=== PATIENT | female | born 1960 | race Caucasian/White ===

== ENCOUNTER 2016-09-01 15:31 | Emergency (ER) | payer OTHER ==
[2016-09-01 15:40] VITALS: RESP 17
--- NOTE | 2016-09-01 16:22 | EDPHY ---
H & P Time Seen by Provider: 09/01/16 15:45 HPI/ROS: Chief complaint. Left thigh pain HPI. 55-year-old female nontraumatic left thigh pain for 1 week. No injury or unusual activity. It hurts to walk. He is in the posterior and lateral left thigh. No similar symptoms previously. No symptoms below the knee. No low back pain. No swelling but she has chronic lymphedema so she has a difficult time knowing if it is more swollen or not. No redness or fever. No recent travel or immobilization. Patient is concerned about blood clot. No chest discomfort or trouble breathing ROS Constitutional. no fever/chills, no weakness Eyes. no problems with vision ENT. no sore throat, no nasal drainage Cardiovascular. no chest pain Respiratory. no shortness of breath, no cough Abdominal. no abdominal pain, no nausea/vomiting, no diarrhea . no problems urinating MS. Left thigh pain Skin. no rash Lymph. no swollen glands Neuro. no headache, no dizziness, no difficulty walking or with speech Past Medical/Surgical History: Hypertension, glaucoma, insomnia, GERD, lymphedema, pre diabetes Social History: Single, nonsmoker, no alcohol Smoking Status: Never smoked Physical Exam: General Appearance: Alert pleasant well-developed female mild distress vital signs are stable Eyes: Pupils equal and round no pallor or injection. ENT, Mouth: Mucous membranes are moist. Respiratory: There are no retractions, lungs are clear to auscultation. Cardiovascular: Regular rate and rhythm. Gastrointestinal: Abdomen is soft and nontender, no masses, bowel sounds normal. Neurological: Awake and alert, sensory and motor exams grossly normal. Skin: Warm and dry, no rashes. Musculoskeletal: Neck is supple nontender. No tenderness to the low back Extremities symmetrical, full range of motion. Tenderness posterior and lateral left thigh. No obvious swelling. Chronic lymphedema is present. No erythema redness. No surface trauma Psychiatric: Patient is oriented X 3, there is no agitation. Constitutional: Initial Vital Signs Temperature (C) 36.7 C 09/01/16 15:37 Heart Rate 103 H 09/01/16 15:37 Respiratory Rate 17 09/01/16 15:37 Blood Pressure 202/97 H 09/01/16 15:37 O2 Sat (%) 94 09/01/16 15:37 O2 Delivery Mode Room Air Allergies/Adverse Reactions: walnut Allergy (Verified 09/01/16 15:36) Home Medications: Medication Instructions Recorded Ambien 5MG (RX) 08/18/13 Lisinopril 09/01/16 Ondansetron Odt [Zofran Odt] 4 mg PO Q4PRN PRN #4 tab 09/01/16 oxyCODONE/APAP 5/325 [Percocet 1 tab PO Q4-6PRN PRN #10 tab 09/01/16 5/325] traMADol 09/01/16 Medical Decision Making - Diagnostics Imaging Results: Imaging Impressions Extremity Venous Study 09/01/16 16:22 Impression: No deep venous thrombosis left leg. Results called and discussed with Dr. Juanpablo Martin at 09/01/2016 17:14. Ultrasound reveals no evidence of DVT ED Course/Re-evaluation: Re-evaluation by me at 5:50 p.m.. Patient is stable. She and I discussed imaging study results, treatment plan including criteria for return importance of follow-up and further evaluation. She expresses understanding and agreement Differential Diagnosis: I considered muscular etiology, sciatica, DVT. Patient has no low back pain and has had sciatic on the right and this does not feel similar. No evidence for DVT. I suspect that this is muscular. Departure - Departure Disposition: Home, Routine, Self-Care Clinical Impression: Thigh pain, musculoskeletal Qualifiers: Laterality: left Qualified Code(s): M79.605 - Pain in left leg Condition: Good Instructions: Hip Sprain (ED) Additional Instructions: Ibuprofen 600 mg every 6 hours for discomfort. Percocet also for pain beginning with 1/2 pill every 4-6 hours. Zofran if needed for nausea. Return for worsening symptoms. Recheck with Dr. Lorenz on Saturday. Referrals: Jody Lorenz MD [Primary Care Provider] - 2-3 days without fail Prescriptions: Ondansetron Odt [Zofran Odt] 4 mg PO Q4PRN PRN #4 tab PRN Reason: Nausea/Vomiting, Use 1st oxyCODONE/APAP 5/325 [Percocet 5/325] 1 tab PO Q4-6PRN PRN #10 tab PRN Reason: Pain, Moderate
[2016-09-01 18:18] VITALS: BP 144/79; PULSE 84; TEMP 98.6; O2SAT 95
== END 2016-09-01 18:17 | disposition home or self-care (01) ==
DX: M79.652 Pain in left thigh (principal); I10 Essential (primary) hypertension

== ENCOUNTER 2016-09-21 10:54 | Emergency (ER) | payer OTHER ==
[2016-09-21 11:09] VITALS: RESP 18
[2016-09-21] MEDS ORDERED: OXYCODONE/APAP 5/325 TAB PO ONE (13:01)
--- NOTE | 2016-09-21 13:21 | EDPHY ---
H & P Stated Complaint: Still has L leg pain;now moving up into hip - Personal History LMP (Females 10-55): Post Menopausal Current Tetanus Diphtheria and Acellular Pertussis (TDAP): Yes - Medical/Surgical History Hx Asthma: No Hx Chronic Respiratory Disease: No Hx Diabetes: No Hx Cardiac Disease: No Hx Renal Disease: No Hx Cirrhosis: No Hx Alcoholism: No Hx HIV/AIDS: No Hx Splenectomy or Spleen Trauma: No Other PMH: glaucoma, GERD, insomnia, lymphadema, htn - Social History Smoking Status: Never smoked Time Seen by Provider: 09/21/16 12:59 HPI/ROS: CHIEF COMPLAINT: Left hip and inguinal pain HISTORY OF PRESENT ILLNESS: 55-year-old morbidly obese female complaining of 2 + weeks of left hip and inguinal pain. She was seen in the ER approximately 2 weeks ago for same complaint had a negative ultrasound. She states that at that time she describes the pain to feel more in her muscles she now describes, for the past few days, the pain feeling worse and more reproducible in her left inguinal region. History of trauma to the area 2 months ago but has been weight -bearing ever since. She has had difficulty weight-bearing recently. She also describes left buttock pain. Denies low back pain. Denies incontinence. Denies retention. Denies saddle anesthesia. Denies foot drop. Denies fever chills. PRIMARY CARE PROVIDER: Dr. Jody Lorenz REVIEW OF SYSTEMS: A ten point review of systems was performed and is negative with the exception of the items mentioned in the HPI PAST MEDICAL & SURGICAL HISTORY: Morbidly obese SOCIAL HISTORY: nonsmoker PHYSICAL EXAM (Prior to examination, patient consented to physical exam, hands were washed and my usual and customary physical exam procedures followed) 1) GENERAL: morbidly obese alert and oriented. Appears uncomfortable. 2) HEAD: Normocephalic, atraumatic 3) HEENT: Pupils equal, round, reactive to light bilaterally. Sclera anicteric. 4) NECK: Full range of motion, no meningeal signs. 5) LUNGS: Clear auscultation bilaterally 6) HEART: Regular rate and rhythm, no murmur, no heave, no gallop. 7) ABDOMEN: No guarding, no rebound, no focal tenderness, 8) MUSCULOSKELETAL: tender to palpation left inguinal region with no palpable or pulsatile mass. No peripheral edema or discoloration. 9) BACK: No CVA tenderness, no midline vertebral tenderness, no fluctuance, no step-off, no obvious trauma, no visual or palpable abnormality. 10) SKIN: No rash, no petechiae. 11) neuro: Bilateral lower extremities strength 5/5, Achilles and patellar reflexes intact equal bilaterally . No foot drop. DIFFERENTIAL DIAGNOSIS: In no particular order, including but not limited to, fracture, sprain/strain, cauda equina, piriformis syndrome (Deepak,Sultana Crystal) Constitutional: Initial Vital Signs Temperature (C) 37.2 C 09/21/16 11:00 Heart Rate 102 H 09/21/16 11:00 Respiratory Rate 18 09/21/16 11:00 Blood Pressure 170/96 H 09/21/16 11:00 O2 Sat (%) 97 09/21/16 11:00 O2 Delivery Mode Room Air Allergies/Adverse Reactions: walnut Allergy (Unknown, Verified 09/21/16 11:04) Home Medications: Medication Instructions Recorded Ambien 5MG (RX) 08/18/13 Lisinopril 09/01/16 oxyCODONE/APAP 5/325 [Percocet 1 tab PO Q4-6PRN PRN #10 tab 09/01/16 5/325] traMADol 09/01/16 Cyclobenzaprine [Flexeril 10 MG 10 mg PO TID #10 tab 09/21/16 (RX)] Pantoprazole Sodium [Protonix 40mg 40 mg PO 09/21/16 (*)] oxyCODONE/APAP 5/325 [Percocet 1 tab PO Q6 #10 tab 09/21/16 5/325] Medical Decision Making - Diagnostics Imaging: Discussed imaging studies w/ call center director Radiologist ED Course/Re-evaluation: Patient was not seen by me while she was in the emergency department. However her care was discussed with the PA while the patient was in the department. I agree with treatment plan and management (Juanpablo Martin) This patient has been re-evaluated with serial examinations. I think this septic arthritis is less than likely. Doubt cauda equina. Discussed possibility of piriformis syndrome. Doubt fracture or dislocation. I think the patient would benefit from non emergent follow up with Orthopedics as she may necessitate MRI. Plan will be discharge with analgesia, Flexeril. Usual and customary discharge precautions instructions provided. (Sultana Sotelo) - Data Points Medications Given: Discontinued Medications Oxycodone/Acetaminophen (Percocet 5/325) 1 tab PO EDNOW ONE Stop: 09/21/16 13:02 Last Admin: 09/21/16 13:14 Dose: 1 tab Departure - Departure Disposition: Home, Routine, Self-Care Clinical Impression: Left hip pain, Left buttock pain Condition: Good Instructions: Hip Pain (ED) Additional Instructions: Return to new or worsening symptoms, if you are unable to bear weight or any other symptoms that concern you. Referrals: Jody Lorenz MD [Primary Care Provider] - As per Instructions Prescriptions: Cyclobenzaprine [Flexeril 10 MG (RX)] 10 mg PO TID #10 tab oxyCODONE/APAP 5/325 [Percocet 5/325] 1 tab PO Q6 #10 tab
[2016-09-21 15:33] VITALS: BP 148/100; PULSE 86; TEMP 97.9; O2SAT 94
== END 2016-09-21 15:34 | disposition home or self-care (01) ==
DX: M25.552 Pain in left hip (principal); M53.3 Sacrococcygeal disorders, not elsewhere classified; I10 Essential (primary) hypertension